=== PATIENT | male | born 1940 | race Caucasian/White ===

== ENCOUNTER 2017-07-04 08:51 | Emergency (ER) | payer OTHER, MEDICARE ==
[~2017-07-04] VITALS: Ht 177.8 cm; Wt 95.2 kg
[~2017-07-04 08:51] MED LIST: ASCRIPTIN; AZOR 5 MG-40 MG1 TAB PO; JALYN 0.5 MG-0.1 CAP PO; JANUMET PO; MAGNESIUM200 MG PO
[2017-07-04 12:03] VITALS: BP 168/91
== END 2017-07-04 12:03 | disposition home or self-care (01) ==
LOC: ED 08:51
DX: S01.412A Laceration without foreign body of left cheek and temporomandibular area, initial encounter (principal); S01.512A Laceration without foreign body of oral cavity, initial encounter; I48.91 Unspecified atrial fibrillation; E11.9 Type 2 diabetes mellitus without complications; I25.10 Atherosclerotic heart disease of native coronary artery without angina pectoris; I10 Essential (primary) hypertension; Z79.84 Long term (current) use of oral hypoglycemic drugs; Z79.82 Long term (current) use of aspirin; Y04.2XXA Assault by strike against or bumped into by another person, initial encounter; Y93.89 Activity, other specified; Y92.89 Other specified places as the place of occurrence of the external cause; Y99.8 Other external cause status
CPT/HCPCS: J2001

== ENCOUNTER 2019-09-14 18:35 | Emergency (ER) | payer OTHER, MEDICARE ==
[~2019-09-14] VITALS: Ht 180.3 cm; Wt 95.7 kg
[2019-09-14 18:37] VITALS: Ht 180.3 cm; Wt 95.7 kg
[2019-09-14 19:13] LABS: BASOPHIL % 0.4 % (0-2); PLATELET COUNT 203 x10^3mcL (130-400)
[2019-09-14 19:16] LABS: CALCIUM 8.7 mg/dL (8.5-10.1); CARBON DIOXIDE 26.5 mmol/L (21-32); CHLORIDE SERUM 105 mmol/L (98-107); CREATININE SERUM 1.3 mg/dL (0.7-1.3); GLUCOSE SERUM 153 mg/dL (74-106); POTASSIUM SERUM 3.9 mmol/L (3.5-5.1); SODIUM SERUM 140 mmol/L (136-145)
[2019-09-14 19:21] LABS: RED CELL DISTRIBUTION WIDTH 14.6 % (11.5-14.5)
[2019-09-14 19:21] LABS: ALBUMIN 3.7 g/dL (3.4-5.0); ALKALINE PHOSPHATASE 101 U/L (46-116); ALT/SGPT 21 U/L (16-63); AST/SGOT 15 U/L (15-37); BILIRUBIN TOTAL 0.5 mg/dL (0.20-1.00); TOTAL PROTEIN, SERUM 6.9 g/dL (6.4-8.2)
[2019-09-14 20:35] VITALS: BP 145/82
== END 2019-09-14 20:36 | disposition home or self-care (01) ==
LOC: ED 18:35
PROVIDERS: Student in an Organized Health Care Education/Training Program
DX: F41.1 Generalized anxiety disorder (principal); R07.89 Other chest pain; I10 Essential (primary) hypertension; E11.9 Type 2 diabetes mellitus without complications
CPT/HCPCS: 36415; 83880; Q0092